=== PATIENT | female | born 1970 | race Caucasian/White ===

== ENCOUNTER 2016-11-30 17:53 | Emergency (ER) | payer OTHER ==
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
[2016-11-30 19:54] VITALS: BP 131/68
[2016-11-30] MEDS ORDERED: Lidocaine 1% 50 ML MDV INJECT ONE (21:30)
--- NOTE | 2016-12-02 12:16 | CR ---
Left forearm: Two views of the left forearm were obtained. Comparison: No prior study. Mildly displaced fracture is identified at the junction of the mid and distal one third diaphysis of the ulna. Displacement by about three quarters shaft width is seen in an AP direction. Radius appears intact without additional fracture. Soft tissue swelling is identified. Impression: 1. Mildly displaced ulnar diaphyseal fracture as described above. 2. Soft tissue swelling. Diagnostic code #3
--- NOTE | 2016-12-02 12:16 | CR ---
Left elbow: Four views of the left elbow were obtained. Comparison: No prior study. Joint spaces are maintained. Soft tissue swelling is seen within the forearm. No fracture, dislocation or other bony abnormality is identified. Impression: 1. Soft tissue swelling within the forearm. No acute abnormality is seen within the left elbow. Diagnostic code #2
== END 2016-11-30 23:10 | disposition home or self-care (01) ==
LOC: JD.ED 17:53
DX: S52.202A Unspecified fracture of shaft of left ulna, initial encounter for closed fracture (principal); S61.213A Laceration without foreign body of left middle finger without damage to nail, initial encounter; S61.215A Laceration without foreign body of left ring finger without damage to nail, initial encounter; Z88.2 Allergy status to sulfonamides; V29.9XXA Motorcycle rider (driver) (passenger) injured in unspecified traffic accident, initial encounter; Y92.410 Unspecified street and highway as the place of occurrence of the external cause
CPT/HCPCS: 12001; 29105; 73080-26-LT; 73080-LT; 73090-26-LT; 73090-LT; 99284-25